=== PATIENT | female | born 1990 | race Two or more races ===

== ENCOUNTER 2022-12-10 17:55 | Emergency (ER) | payer SELFPAY ==
[~2022-12-10] VITALS: Ht 175.3 cm; Wt 63.0 kg
[2022-12-10 18:06] VITALS: TEMP 98.5; O2SAT 100
[2022-12-10] MEDS ORDERED: IBUPROFEN 600MG TABLET PO NR (18:30)
[2022-12-10] MEDS ORDERED: IBUP-2029 MT (18:39)
[2022-12-10 20:47] VITALS: BP 121/75; PULSE 58; RESP 18
== END 2022-12-10 20:50 | disposition home or self-care (01) ==
LOC: ER 17:55
DX: R51.9 Headache, unspecified (principal); V49.9XXA Car occupant (driver) (passenger) injured in unspecified traffic accident, initial encounter; Y93.9 Activity, unspecified; Y92.89 Other specified places as the place of occurrence of the external cause; Y99.8 Other external cause status
CPT/HCPCS: 73060; 73090; 81025; 99284